=== PATIENT | female | born 1970 | race Two or more races ===

== ENCOUNTER → 2024-07-22 | Outpatient (CLI) | payer MEDICAID, SELFPAY ==
--- NOTE | 2024-07-22 14:30 | XR_ITS ---
Examination: Screening digital mammography, bilateral Computer aided detection 3-D breast Tomosynthesis, bilateral Date and time of exam: July 22, 2024 1413 hours Compared to mammograms dating to December 25, 2014 Indication: Screening Technique: Nonmagnified MLO, CC views of the breasts to been obtained, reconstructed from 3-D Tomosynthesis images. R2 computer aided detection program utilized for evaluation of suspicious masses and/or abnormal calcifications. 3-D Tomosynthesis images obtained. Findings: Scattered areas of fibroglandular density. Benign calcifications. No interval suspicious masses Impression: BI-RADS category II: Benign Findings. Recommend 1 year follow-up mammogram.
== END | disposition home or self-care (01) ==
LOC: CDIM 13:57
PROVIDERS: Referring Provider Nurse Practitioner Family; Visit Provider Nurse Practitioner Family
DX: Z12.31 Encounter for screening mammogram for malignant neoplasm of breast (principal); R92.323 Mammographic fibroglandular density, bilateral breasts; R92.1 Mammographic calcification found on diagnostic imaging of breast
CPT/HCPCS: 77063; 77067

== ENCOUNTER 2024-12-06 11:55 | Emergency (ER) | payer MEDICAID, SELFPAY ==
--- NOTE | 2024-12-06 | XR_ITS ---
Examination: MRI brain without intravenous contrast. MRA brain without contrast Date and time of exam: December 06, 2024 at 1402 hours Comparison January 09, 2015 INDICATIONS: Onset left arm and left facial weakness today Technique: Multiple axial and sagittal images of the brain obtained. Siemens high-resolution 1.5 Karmen short bore scanners utilized. Sagittal sections, T1-weighted, TR 500, TE 14, are performed. Axial sections proton-density and T2-weighted have been obtained. Inversion recovery axial images, TR 9, 260, TE 111, TI 2500. Diffusion weighted images, axial sections, TR 4800, TE 128, B value 1000 Axial sections, ADC map, TR 4800, TE 128 Findings: Enlargement of the sella turcica is not present. The optic chiasm and infundibular are not remarkable. Prepontine and interpeduncular cisterns are not enlarged. There is no localized enlargement of the medulla or jo-ann. Fourth ventricle and cerebellar tonsils appear normal in position. No subacute area of hemorrhage density is seen. Mass in the cerebellopontine angle region is not evident. Globes symmetrical. Orbital musculature including medial lateral rectus muscles do not exhibit abnormality. Diffusion-weighted images demonstrate no focus of restricted diffusion. Increased white matter signal evident, large old infarcts right middle cerebral artery distribution, left basal ganglia, left cerebellar hemisphere Mass effect upon the ventricular system is not identified. Impression: Negative for acute hemorrhage mass effect or midline shift Old infarcts as above Multiple significant stenoses bilateral posterior cerebral arteries
--- NOTE | 2024-12-06 12:02 | PC.NURSE ---
Provider at ambulance bay to assess pt. LKW Thursday12/04/24 at 1130am. Code stroke not activated due to LKW time.
--- NOTE | 2024-12-06 12:04 | PD.EDNEURO ---
Neuro Symptoms Deficit-RME/HPI General Chief Complaint: Weakness Stated Complaint: POSSIBLE STROKE Time Seen by Provider: 12/06/24 12:21 Arrival date/time: 12/06/24 11:55 Limitations: no limitations RME / HPI RME / HPI Narrative: DR. HAWKINS MAIN ED EVALUATION: 54 year old female presents to the Emergency Department [facility] with complaint of increased weakness; she has chronic weakness but has increased weakness since Thursday, 3 days ago. She states she had 9 strokes in the past. Patient is a poor historian and does not remember the last stroke. She has chronic mild generalized weakness of the left upper extremity and left lower extremity. Per family, patient can ambulate normally without a walker. She also has worsening left facial droop. No chest pain. No headache, dizziness. No abdominal pain, nausea, vomiting, or diarrhea. Related Data Home Medications ?Medication ?Instructions ?Recorded ?Confirmed amlodipine 10 mg tablet (Norvasc) 10 mg PO QDAY HBP #0 tabs 07/16/14 02/07/23 clonidine HCl 0.1 mg tablet 0.1 mg PO DAILY 03/15/20 02/07/23 atorvastatin 80 mg tablet 1 tab PO HS 04/07/22 02/07/23 dapagliflozin propanediol 5 mg 10 tab PO QDAY 04/07/22 02/07/23 tablet (Farxiga) icosapent ethyl 1 gram capsule 2 cap PO QDAY 04/07/22 02/07/23 lisinopril 20 mg tablet 1 tab PO QDAY 04/07/22 02/07/23 pantoprazole 40 mg tablet,delayed 1 tab PO QDAY 04/07/22 02/07/23 release semaglutide 1 mg/dose (4 mg/3 mL) 1 mg subcut QWEEK 04/07/22 02/07/23 subcutaneous pen injector (Ozempic) carvedilol 6.25 mg tablet 6.25 mg PO BID 01/19/23 02/07/23 insulin aspart U-100 100 unit/mL 13 unit subcut TID 01/19/23 02/07/23 (3 mL) subcutaneous pen insulin glargine U-300 conc 300 30 unit subcut HS 01/19/23 02/07/23 unit/mL (3 mL) subcutaneous pen (Toujeo Max U-300 SoloStar) Previous Rx's ?Medication ?Instructions ?Recorded clopidogrel 75 mg tablet (Plavix) 75 mg PO QDAY BLOOD THINNER #90 02/15/23 tabs ondansetron 4 mg disintegrating 4 mg PO Q4HR PRN Nausea Or 02/15/23 tablet Vomiting #30 tabs hydrocodone 5 mg-acetaminophen 325 1 tab PO Q6H PRN pain #7 tabs 04/08/23 mg tablet acetaminophen 300 mg-codeine 30 mg 1 tab PO QDAY #10 tabs 04/27/23 tablet ondansetron 4 mg disintegrating 4 mg PO Q8H #14 tabs 04/27/23 tablet ursodiol 250 mg tablet 250 mg PO TID #90 tabs 05/15/23 hydrocodone 5 mg-acetaminophen 325 1 tab PO BID PRN pain #10 tabs 05/18/23 mg tablet ciprofloxacin HCl 500 mg tablet 500 mg PO BID #14 tabs 05/25/23 (Cipro) hydrocodone 5 mg-acetaminophen 325 1 tab PO BID PRN pain #8 tabs 06/03/23 mg tablet meclizine 50 mg tablet (Antivert) 50 mg PO BID PRN vertigo #20 tabs 11/07/23 Allergies Allergy/AdvReac Type Severity Reaction Status Date / Time bee venom protein (honey bee) Allergy Anaphylaxis Verified 12/06/24 12:13 niacin AdvReac Severe BURNING Verified 05/18/23 07:53 SENSATION INSIDE SKIN Review of Systems Review of Systems Systems Reviewed: All systems reviewed, normal except as documented Past Medical History Past Medical History NEUROLOGIC: Positive Neurological Disorders and Cerebrovascular Accident CARDIAC: Positive Cardiac Disorders, Hypercholesterolemia and Hypertension GENITOURINARY: Positive Genitourinary Disorders and Kidney Stones MUSCULOSKELETAL: Positive Musculoskeletal Disorders and Gout ENDOCRINE: Positive Endocrine Disorders and Diabetes Mellitus Type 2; Negative Diabetes Mellitus Type 1 HEMATOLOGIC: Negative Sickle Cell Disease OTHER HISTORY: Positive Blood Transfusions Surgical History SURGICAL: Positive Abdominal Surgery, Hysterectomy and Section Social History SMOKING STATUS: Never smoker SECOND HAND EXPOSURE: No SUBSTANCE USE: does not use ALCOHOL: Never ED Exam General Limitations: Present no limitations General appearance: Present alert and in no apparent distress Head Head exam: Present atraumatic, normocephalic and normal inspection Eye Eye exam: Present normal appearance, PERRL and EOMI ENT ENT exam: Present normal exam, normal oropharynx and mucous membranes moist Neck Neck exam: Present normal inspection, full ROM and trachea midline Chest Chest inspection: Present normal inspection and symmetric chest wall rise Respiratory Respiratory exam: Present normal lung sounds bilaterally Cardiovascular Cardiovascular exam: Present regular rate, normal rhythm and normal heart sounds Abdominal Exam Abdominal exam: Present soft and normal bowel sounds Extremities Exam Extremities exam: Present normal inspection and full ROM Back Exam Back exam: Present normal inspection and full ROM Neurological Exam Neurological exam: Present alert, oriented X3 and other (mild left facial droop; finger to nose test intact; heel to smith intact) Expanded Neurological Exam Patient oriented to: Present person, place and time Speech: Present fluid speech Motor strength - LUE: 4/5 Motor strength - RUE: 5 Motor strength - LLE: 4/ Motor strength - RLE: 12/19 Psychiatric Psychiatric exam: Present normal affect and normal mood Skin Skin exam: Present warm, dry, intact and normal color Course Quality Measures none Orders Category Date Time Status Bedside Blood Glucose NOW Care 12/06/24 12:37 Active Marker Assembler NOW Care 12/06/24 12:37 Active Continuous Pulse Oximetry NOW Care 12/06/24 12:37 Completed EKG (ED ONLY) *Do not use* NOW Care 12/06/24 12:37 Completed Insert IV NOW Care 12/06/24 12:37 Active MRI Screening NOW Care 12/06/24 12:42 Active NIH Stroke Scale now Care 12/06/24 12:37 Active NPO NOW Care 12/06/24 12:37 Active Neuro Check Q15MIN Care 12/06/24 12:37 Active Nurse Swallow Screen x1 Care 12/06/24 12:37 Active Consult to Neurology / Tele-Neurology Routine Cons 12/06/24 12:37 Active EKG (ED Only) Stat Exams 12/06/24 12:37 Draft MR head/brain wo con Stat Exams 12/06/24 Completed CBC Stat Lab 12/06/24 13:04 Completed Comprehensive Metabolic Panel Stat Lab 12/06/24 13:04 Completed Magnesium Stat Lab 12/06/24 13:04 Completed Partial Thromboplastin Time Stat Lab 12/06/24 13:04 Completed Prothrombin Time with INR Stat Lab 12/06/24 13:04 Completed Troponin I Stat Lab 12/06/24 13:04 Completed Urinalysis Stat Lab 12/06/24 12:37 Ordered LORazepam [Ativan Inj] Med 12/06/24 13:07 Discontinued 0.5 mg IVP X1 ONE Vital Signs Vital signs: Vital Signs Temperature 98.8 F 12/06/24 12:05 Pulse Rate 76 12/06/24 12:05 Respiratory Rate 20 12/06/24 12:05 Blood Pressure 165/112 H 12/06/24 12:05 Pulse Oximetry (%) 97 12/06/24 12:05 Oxygen Delivery Method Room Air 12/06/24 12:05 Neuro Symptoms / Deficit MDM Narrative MDM Narrative:: IJasmyn am scribing for and in the presence of Dr. Hawkins. Patient data External records reviewed:: EMS form Clinical information provided by:: patient and EMS Social determinants that could affect healthcare access:: none Patient has the following chronic illnesses:: 9 strokes in the past. How is presenting disease/condition affected by chronic disease/condition?: exacerbated by Evaluation data The following diagnostics were reviewed and interpreted by me:: lab results, radiology exam(s) and EKG tracing(s) Lab and/or radiology exams considered but not ordered:: none Interpretation Summary: EKG#1: EKG at 1209 hours. Interpreted by me: sinus rhythm, rate 79, low voltage, nonspecific ST-T wave changes, RI interval 177 ms, QRS duration 79 ms, QT/QTc 378/416, P-R-T axis 40, 2, and 68 RADIOLOGY Procedure(s): MR head/brain wo con Accession Number(s): [id number] cc: Caleb Hawkins MD; Ab Polk MD~ Examination: MRI brain without intravenous contrast. MRA brain without contrast Date and time of exam: December 06, 2024 at 1402 hours Comparison January 09, 2015 INDICATIONS: Onset left arm and left facial weakness today Technique: Multiple axial and sagittal images of the brain obtained. Siemens high-resolution 1.5 Karmen short bore scanners utilized. Sagittal sections, T1-weighted, TR 500, TE 14, are performed. Axial sections proton-density and T2-weighted have been obtained. Inversion recovery axial images, TR 9, 260, TE 111, TI 2500. Diffusion weighted images, axial sections, TR 4800, TE 128, B value 1000 Axial sections, ADC map, TR 4800, TE 128 Findings: Enlargement of the sella turcica is not present. The optic chiasm and infundibular are not remarkable. Prepontine and interpeduncular cisterns are not enlarged. There is no localized enlargement of the medulla or jo-ann. Fourth ventricle and cerebellar tonsils appear normal in position. No subacute area of hemorrhage density is seen. Mass in the cerebellopontine angle region is not evident. Globes symmetrical. Orbital musculature including medial lateral rectus muscles do not exhibit abnormality. Diffusion-weighted images demonstrate no focus of restricted diffusion. Increased white matter signal evident, large old infarcts right middle cerebral artery distribution, left basal ganglia, left cerebellar hemisphere Mass effect upon the ventricular system is not identified. Impression: Negative for acute hemorrhage mass effect or midline shift Old infarcts as above Multiple significant stenoses bilateral posterior cerebral arteries Dictated By: Ab Polk MD Medications / Prescriptions Medications or Prescriptions considered but not ordered:: none Medication administrations:: Medication Administration History Discontinued Medications Lorazepam (Lorazepam 2 Mg/Ml Vial) 0.5 mg IVP X1 ONE Stop: 12/06/24 13:08 Last Admin: 12/06/24 13:12 Dose: 0.5 mg Documented By: TM see above Consultations Consultation(s) initiated? (list below): No Diagnosis Neuro Differential Diagnosis: subarachnoid hemorrhage, cerebrovascular accident and transient cerebral ischemia Most likely diagnosis given after review of the tests above:: Weakness Paresthesias History of CVA Admission Indicated Admission indicated?: not indicated Admission Request Was there a request for admission?: No Disposition Plan Disposition Plan: Discharge Discharge Attestation Discharge Attestation: The patient and all family members were given an opportunity to ask questions and understood the discharge instructions. Discharge instructions specifically effects, indications for sooner follow up or return to the emergency department, and the expected course of current diagnosis. Patient condition: Stable Discharge Plan Plan Patient Disposition: HOME (Self Care) Patient condition on transfer: Stable Prescriptions/Referrals Prescriptions/Med Rec: No Action ursodiol 250 mg tablet 250 mg PO TID Qty: 90 0RF amlodipine [Norvasc] 10 MG tablet 10 mg PO QDAY Qty: 0 clonidine HCl 0.1 MG tablet 0.1 mg PO DAILY Rx Instructions: ONLY IF SBP IS GREATER THAN 160 atorvastatin 80 mg tablet 1 tab PO HS Patient Comments: TAKE 1 TABLET BY MOUTH EVERY DAY lisinopril 20 mg tablet 1 tab PO QDAY Patient Comments: TAKE 1 TABLET BY MOUTH EVERY DAY pantoprazole 40 mg tablet,delayed release (DR/EC) 1 tab PO QDAY Patient Comments: TAKE 1 TABLET BY MOUTH EVERY DAY IN THE MORNING BEFORE MEALS icosapent ethyl 1 gram capsule 2 cap PO QDAY Patient Comments: TAKE 2 CAPSULES BY MOUTH EVERY DAY Farxiga 5 mg tablet 10 tab PO QDAY Patient Comments: TAKE 1 TABLET BY MOUTH EVERY DAY Ozempic 1 mg/dose (4 mg/3 mL) pen injector 1 mg SUBCUT QWEEK Patient Comments: INJECT 1 MG SUBCUTANEOUSLY ONCE A WEEK carvedilol 6.25 mg tablet 6.25 mg PO BID Patient Comments: TAKE 1 TABLET BY MOUTH TWICE A DAY insulin aspart U-100 100 unit/mL (3 mL) insulin pen 13 unit SUBCUT TID Patient Comments: INJECT 13 UNITS 3 TIMES A DAY WITH MEAL Toujeo Max U-300 SoloStar 300 unit/mL (3 mL) insulin pen 30 unit SUBCUT HS Patient Comments: INJECT 30 UNITS SUBCUTANEOUS EVERY NIGHT hydrocodone-acetaminophen 5-325 mg tablet 1 tab PO Q6H MDD 3 PRN (Reason: pain) Qty: 7 0RF hydrocodone-acetaminophen 5-325 mg tablet 1 tab PO BID MDD 10 PRN (Reason: pain) Qty: 10 0RF ciprofloxacin HCl [Cipro] 500 mg tablet 500 mg PO BID Qty: 14 0RF hydrocodone-acetaminophen 5-325 mg tablet 1 tab PO BID MDD 10 PRN (Reason: pain) Qty: 8 0RF meclizine [Antivert] 50 mg tablet 50 mg PO BID PRN (Reason: vertigo) Qty: 20 0RF ondansetron 4 mg Tablet,Disintegrating 4 mg PO Q4HR PRN (Reason: Nausea Or Vomiting) Qty: 30 0RF clopidogrel [Plavix] 75 MG tablet 75 mg PO QDAY Qty: 90 0RF ondansetron 4 mg tablet,disintegrating 4 mg PO Q8H Qty: 14 0RF acetaminophen-codeine 300-30 mg tablet 1 tab PO QDAY Qty: 10 0RF Problem List Clinical Impression: Weakness, Complaint of paresthesia, Hx of completed stroke Patient/Caregiver Discharge Instructions Education Materials: Stroke Prevent Another Caregiver, ED Weakness (Uncertain Cause), ED Paraesthesias Additional Instructions: Please follow-up with your primary care physician within a week. Return to the Emergency Department as needed. Print Language: [place] Stand Alone Forms: Fiona Award Info., Patient Portal Info Letter
[2024-12-06 12:05] VITALS: BP 165/112; PULSE 75; PULSE 76; RESP 18; RESP 20; TEMP 37.1; O2SAT 97
[2024-12-06 12:15] VITALS: BP 165/112; PULSE 72; RESP 18; TEMP 36.4; O2SAT 95
--- NOTE | 2024-12-06 12:27 | PC.NURSE ---
PT BIBA FROM HOME FOR INCREASED WEAKNESS TO LEFT SIDE THAT STARTED ON Thursday12/04/24. LKW WAS 1130 ON 12/04/24. PER EMS PT HAS HX OF 9 STROKES, W/RESIDUAL WEAKNESS TO LEFT SIDE. PT DENIES ANY PAIN OR DISCOMFORT, REPORTS SHE HAD THE FLU LAST WEEK AND WAS ON TAMIFLU. PT CONNECTED TO TELE, EKG DONE, WILL CONT W/POC.
--- NOTE | 2024-12-06 12:37 | EKG_ITS ---
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
[2024-12-06 13:01] VITALS: BP 133/79; PULSE 74; RESP 16; TEMP 36.9; O2SAT 98
[2024-12-06] MEDS: LORazepam 2 MG/ML VIAL 0.5 MG IVP (13:12)
--- NOTE | 2024-12-06 13:12 | PC.NURSE ---
PT TO MRI
[2024-12-06 13:26] LABS: Basophils # (Auto) 0.1 Thou/mm3 (0.0-0.2); Basophils % (Auto) 1 % (0-2.5); Eosinophils # (Auto) 0.7 Thou/mm3 (0.0-0.5); Eosinophils % (Auto) 7 % (0-10); Hematocrit 46.1 % (36.0-46.0); Hemoglobin 15.4 g/dL (12.0-16.0); Immature Granulocytes % (Auto) 0 % (0-0); Immature Granulocytes Auto 0.04 Thou/mm3 (0.00-0.00); Lymphocytes # (Auto) 2.5 Thou/mm3 (1.0-4.8); Lymphocytes % (Auto) 25 % (10-50); Mean Corpuscular HGB Conc 33.4 g/dl (31.0-37.0); Mean Corpuscular Hemoglobin 27.5 pg (25.0-35.0); Mean Corpuscular Volume 83 fL (80-100); Monocytes # (Auto) 0.6 Thou/mm3 (0.0-0.8); Monocytes % (Auto) 6 % (0-12); Neutrophils # (Auto) 6.1 Thou/mm3 (1.8-7.7); Neutrophils % (Auto) 61 % (37-80); Nucleated Red Blood Cell % 0 /100 WBC (0); Platelet Count 298 Thou/mm3 (140-440); RDW Standard Deviation 42.5 fL (36.4-46.3); Red Blood Count 5.59 Miln/mm3 (4.00-5.20); White Blood Count 10.1 Thou/mm3 (3.6-11.0)
[2024-12-06 13:37] LABS: Partial Thromboplastin Time 28.4 Seconds (22.0-36.0); Prothrombin Time 11.3 Seconds (9.0-12.2)
[2024-12-06 13:44] LABS: Alanine Aminotransferase 15 U/L (10-49); Albumin, Serum 4.2 gm/dL (3.5-5.0); Albumin/Globulin Ratio 1.3 (1.2-2.2); Alkaline Phosphatase 116 U/L (46-116); Anion Gap 9 (7-16); Aspartate Amino Transferase 20 U/L (0-34); BUN/Creatinine Ratio 11 Ratio (12-20); Bilirubin,Total 0.6 mg/dL (0.3-1.2); Blood Urea Nitrogen 16 mg/dL (9-23); Calcium 9.1 mg/dL (8.3-10.6); Calcium (Corrected) 9.1 mg/dL (8.5-10.1); Carbon Dioxide 21.4 mMol/L (20.0-31.0); Chloride 110 mMol/L (98-107); Creatinine (Component) 1.4 mg/dL (0.6-1.3); Globulin 3.2 gm/dL (2.3-3.5); Glucose 277 mg/dL (74-106); Osmolality,Calculated 290 (275-295); Sodium 140 mMol/L (136-145); Total Protein 7.4 gm/dL (5.7-8.2); Troponin I < 0.020 ng/mL (0.0-0.045); eGFR 44 See Note
== END 2024-12-06 15:23 | disposition home or self-care (01) ==
PROVIDERS: Emergency Provider Family Medicine
DX: I66.23 Occlusion and stenosis of bilateral posterior cerebral arteries (principal); R94.31 Abnormal electrocardiogram [ECG] [EKG]; I69.392 Facial weakness following cerebral infarction; I69.354 Hemiplegia and hemiparesis following cerebral infarction affecting left non-dominant side; I69.334 Monoplegia of upper limb following cerebral infarction affecting left non-dominant side; E78.00 Pure hypercholesterolemia, unspecified; I10 Essential (primary) hypertension; Z79.01 Long term (current) use of anticoagulants
CPT/HCPCS: 36415; 70551; 80053; 81001; 83735; 84484; 85025; 85610; 85730; 93005; 96374; 99284; J2060

== ENCOUNTER 2025-03-26 09:36 | Emergency (ER) | payer MEDICAID, SELFPAY ==
[2025-03-26 09:44] VITALS: BP 150/92; PULSE 80; RESP 18; TEMP 36.8; O2SAT 96; BMI 26.9
--- NOTE | 2025-03-26 10:22 | PD.EDNECK ---
ED Neck Injury Pain RME/HPI General Chief Complaint: Neck Pain/Injury Stated Complaint: RIGHT SIDED NECK PAIN RADIATING DOWN RIGHT ARM Time Seen by Provider: 03/26/25 10:09 Arrival date/time: 03/26/25 09:36 54-year-old female with complaints of acute on chronic neck pain presents to the emergency department today for complaints of neck pain radiating down the right arm patient reports no recent injury no headache or weakness Limitations: no limitations Related Data Home Medications ?Medication ?Instructions ?Recorded ?Confirmed amlodipine 10 mg tablet (Norvasc) 10 mg PO QDAY HBP #0 tabs 07/16/14 02/07/23 clonidine HCl 0.1 mg tablet 0.1 mg PO DAILY 03/15/20 02/07/23 atorvastatin 80 mg tablet 1 tab PO HS 04/07/22 02/07/23 dapagliflozin propanediol 5 mg 10 tab PO QDAY 04/07/22 02/07/23 tablet (Farxiga) icosapent ethyl 1 gram capsule 2 cap PO QDAY 04/07/22 02/07/23 lisinopril 20 mg tablet 1 tab PO QDAY 04/07/22 02/07/23 pantoprazole 40 mg tablet,delayed 1 tab PO QDAY 04/07/22 02/07/23 release semaglutide 1 mg/dose (4 mg/3 mL) 1 mg subcut QWEEK 04/07/22 02/07/23 subcutaneous pen injector (Ozempic) carvedilol 6.25 mg tablet 6.25 mg PO BID 01/19/23 02/07/23 insulin aspart U-100 100 unit/mL 13 unit subcut TID 01/19/23 02/07/23 (3 mL) subcutaneous pen insulin glargine U-300 conc 300 30 unit subcut HS 01/19/23 02/07/23 unit/mL (3 mL) subcutaneous pen (Toujeo Max U-300 SoloStar) Previous Rx's ?Medication ?Instructions ?Recorded clopidogrel 75 mg tablet (Plavix) 75 mg PO QDAY BLOOD THINNER #90 02/15/23 tabs ondansetron 4 mg disintegrating 4 mg PO Q4HR PRN Nausea Or 02/15/23 tablet Vomiting #30 tabs hydrocodone 5 mg-acetaminophen 325 1 tab PO Q6H PRN pain #7 tabs 04/08/23 mg tablet acetaminophen 300 mg-codeine 30 mg 1 tab PO QDAY #10 tabs 04/27/23 tablet ondansetron 4 mg disintegrating 4 mg PO Q8H #14 tabs 04/27/23 tablet ursodiol 250 mg tablet 250 mg PO TID #90 tabs 05/15/23 hydrocodone 5 mg-acetaminophen 325 1 tab PO BID PRN pain #10 tabs 05/18/23 mg tablet ciprofloxacin HCl 500 mg tablet 500 mg PO BID #14 tabs 05/25/23 (Cipro) hydrocodone 5 mg-acetaminophen 325 1 tab PO BID PRN pain #8 tabs 06/03/23 mg tablet meclizine 50 mg tablet (Antivert) 50 mg PO BID PRN vertigo #20 tabs 11/07/23 cyclobenzaprine 10 mg tablet 10 mg PO TID PRN muscle spasm 10 03/26/25 days #30 tab-caps hydrocodone 5 mg-acetaminophen 325 1 tab PO BID PRN pain #8 tabs 03/26/25 mg tablet Allergies Allergy/AdvReac Type Severity Reaction Status Date / Time bee venom protein (honey bee) Allergy Anaphylaxis Verified 03/26/25 09:40 niacin AdvReac Severe BURNING Verified 03/26/25 09:40 SENSATION INSIDE SKIN Review of Systems Review of Systems Systems Reviewed: All systems reviewed, normal except as documented Constitutional Constitutional: Reports system reviewed and no additional complaints, except as documented, Denies fever(s) and Denies headache(s) Eyes Eyes: Reports system reviewed and no additional complaints, except as documented and Denies blurry vision ENT Ears, Nose, Mouth, and Throat: Reports system reviewed and no additional complaints, except as documented, Denies headache(s), Denies nasal congestion, Denies nasal discharge and Reports neck pain Cardiovascular Cardiovascular: Reports system reviewed and no additional complaints, except as documented, Denies chest pain and Denies dyspnea Respiratory Respiratory: Reports system reviewed and no additional complaints, except as documented, Denies chest congestion, Denies cough and Denies dyspnea Gastrointestinal Gastrointestinal: Reports system reviewed and no additional complaints, except as documented and Denies abdominal pain Musculoskeletal Musculoskeletal: Reports system reviewed and no additional complaints, except as documented, Denies deformity, Reports neck pain, Denies numbness, Reports stiffness and Denies tingling Integumentary/Breasts Skin/Breast: Reports system reviewed and no additional complaints, except as documented and Denies rash Neurologic Neurologic: Reports system reviewed and no additional complaints, except as documented, Reports as per HPI, Denies headache(s), Denies numbness and Denies tingling Past Medical History Past Medical History NEUROLOGIC: Positive Neurological Disorders and Cerebrovascular Accident CARDIAC: Positive Cardiac Disorders, Hypercholesterolemia and Hypertension; Negative Congestive Heart Failure RESPIRATORY: Negative Chronic Obstructive Pulmonary Disease (COPD) or Asthma GASTROINTESTINAL: Negative Gastrointestinal Disorders GENITOURINARY: Positive Genitourinary Disorders and Kidney Stones; Negative Renal Disease MUSCULOSKELETAL: Positive Musculoskeletal Disorders and Gout ENDOCRINE: Positive Endocrine Disorders and Diabetes Mellitus Type 2; Negative Diabetes Mellitus Type 1 HEMATOLOGIC: Negative Sickle Cell Disease OTHER HISTORY: Positive Blood Transfusions Surgical History SURGICAL: Positive Abdominal Surgery, Hysterectomy and Section Social History SMOKING STATUS: Former smoker SECOND HAND EXPOSURE: No SUBSTANCE USE: does not use ED Exam General Limitations: Present no limitations General appearance: Present alert and in no apparent distress Head Head exam: Present atraumatic Eye Eye exam: Present normal appearance, PERRL and EOMI ENT ENT exam: Present normal exam, normal oropharynx and mucous membranes moist Neck Neck exam: Present normal inspection, full ROM, trachea midline and tenderness; Absent meningismus, lymphadenopathy or thyromegaly Chest Chest inspection: Present normal inspection and symmetric chest wall rise Respiratory Respiratory exam: Present normal lung sounds bilaterally Cardiovascular Cardiovascular exam: Present regular rate, normal rhythm and normal heart sounds Abdominal Exam Abdominal exam: Present soft and normal bowel sounds Extremities Exam Extremities exam: Present normal inspection and full ROM Back Exam Back exam: Present normal inspection and full ROM Neurological Exam Neurological exam: Present alert, oriented X3 and CN II-XII intact Psychiatric Psychiatric exam: Present normal affect and normal mood Skin Skin exam: Present warm, dry, intact and normal color Course Quality Measures none Orders Category Date Time Status HYDROcodone*/APAP 5/325 [[place] 5/325] Med 03/26/25 10:14 Discontinued 1 tab PO X1 ONE Vital Signs Vital signs: Vital Signs Temperature 98.3 F 03/26/25 09:44 Pulse Rate 80 03/26/25 09:44 Respiratory Rate 18 03/26/25 09:44 Blood Pressure 150/92 H 03/26/25 09:44 Pulse Oximetry (%) 96 03/26/25 09:44 Oxygen Delivery Method Room Air 03/26/25 09:44 O2 saturation 96% on room air within normal limits Neck Pain MDM Narrative MDM Narrative:: 54-year-old female with complaints of acute on chronic neck pain presents to the emergency department today for complaints of neck pain radiating down the right arm patient reports no recent injury no headache or weakness On exam patient well-appearing patient does not appear ill or toxic in no acute distress Symptoms consistent with muscle spasm, pinched nerve Patient be treated with course of [place] and muscle relaxers Patient discharged home in no distress to follow-up with primary care doctor in the next 24 to 48 hours and for any worsening symptoms to return to the ER immediately Patient data External records reviewed:: [facility] [place] previous records Clinical information provided by:: patient Social determinants that could affect healthcare access:: none Patient has the following chronic illnesses:: See history How is presenting disease/condition affected by chronic disease/condition?: caused by Evaluation data The following diagnostics were reviewed and interpreted by me:: other (specify) Lab and/or radiology exams considered but not ordered:: Considered not indicated Interpretation Summary: N/A Medications / Prescriptions Medications or Prescriptions considered but not ordered:: Given Medication administrations:: Medication Administration History Discontinued Medications Hydrocodone Bitart/Acetaminophen (Hydrocodone/Apap 5/325 Tablet) 1 tab PO X1 ONE Stop: 03/26/25 10:15 Last Admin: 03/26/25 10:32 Dose: 1 tab Documented By: Given Consultations Consultation(s) initiated? (list below): No Diagnosis Neck Differential Diagnosis: disc disorder of cervical region, closed subluxation of cervical spine, torticollis and strain of neck muscle Most likely diagnosis given after review of the tests above:: Neck pain Admission Indicated Admission indicated?: not indicated Admission Request Was there a request for admission?: No Disposition Plan Disposition Plan: Discharge Discharge Attestation Discharge Attestation: The patient and all family members were given an opportunity to ask questions and understood the discharge instructions. Discharge instructions specifically effects, indications for sooner follow up or return to the emergency department, and the expected course of current diagnosis. Patient condition: Stable Discharge Plan Plan Patient Disposition: HOME (Self Care) Discharge Disposition comment: Stable Prescriptions/Referrals Prescriptions/Med Rec: New cyclobenzaprine 10 mg tablet 10 mg PO TID PRN (Reason: muscle spasm) 10 Days Qty: 30 0RF hydrocodone-acetaminophen 5-325 mg tablet 1 tab PO BID MDD 10 PRN (Reason: pain) Qty: 8 0RF No Action ursodiol 250 mg tablet 250 mg PO TID Qty: 90 0RF amlodipine [Norvasc] 10 MG tablet 10 mg PO QDAY Qty: 0 clonidine HCl 0.1 MG tablet 0.1 mg PO DAILY Rx Instructions: ONLY IF SBP IS GREATER THAN 160 atorvastatin 80 mg tablet 1 tab PO HS Patient Comments: TAKE 1 TABLET BY MOUTH EVERY DAY lisinopril 20 mg tablet 1 tab PO QDAY Patient Comments: TAKE 1 TABLET BY MOUTH EVERY DAY pantoprazole 40 mg tablet,delayed release (DR/EC) 1 tab PO QDAY Patient Comments: TAKE 1 TABLET BY MOUTH EVERY DAY IN THE MORNING BEFORE MEALS icosapent ethyl 1 gram capsule 2 cap PO QDAY Patient Comments: TAKE 2 CAPSULES BY MOUTH EVERY DAY Farxiga 5 mg tablet 10 tab PO QDAY Patient Comments: TAKE 1 TABLET BY MOUTH EVERY DAY Ozempic 1 mg/dose (4 mg/3 mL) pen injector 1 mg SUBCUT QWEEK Patient Comments: INJECT 1 MG SUBCUTANEOUSLY ONCE A WEEK carvedilol 6.25 mg tablet 6.25 mg PO BID Patient Comments: TAKE 1 TABLET BY MOUTH TWICE A DAY insulin aspart U-100 100 unit/mL (3 mL) insulin pen 13 unit SUBCUT TID Patient Comments: INJECT 13 UNITS 3 TIMES A DAY WITH MEAL Toujeo Max U-300 SoloStar 300 unit/mL (3 mL) insulin pen 30 unit SUBCUT HS Patient Comments: INJECT 30 UNITS SUBCUTANEOUS EVERY NIGHT hydrocodone-acetaminophen 5-325 mg tablet 1 tab PO Q6H MDD 3 PRN (Reason: pain) Qty: 7 0RF hydrocodone-acetaminophen 5-325 mg tablet 1 tab PO BID MDD 10 PRN (Reason: pain) Qty: 10 0RF ciprofloxacin HCl [Cipro] 500 mg tablet 500 mg PO BID Qty: 14 0RF hydrocodone-acetaminophen 5-325 mg tablet 1 tab PO BID MDD 10 PRN (Reason: pain) Qty: 8 0RF meclizine [Antivert] 50 mg tablet 50 mg PO BID PRN (Reason: vertigo) Qty: 20 0RF ondansetron 4 mg Tablet,Disintegrating 4 mg PO Q4HR PRN (Reason: Nausea Or Vomiting) Qty: 30 0RF clopidogrel [Plavix] 75 MG tablet 75 mg PO QDAY Qty: 90 0RF ondansetron 4 mg tablet,disintegrating 4 mg PO Q8H Qty: 14 0RF acetaminophen-codeine 300-30 mg tablet 1 tab PO QDAY Qty: 10 0RF Problem List Clinical Impression: Neck pain Patient/Caregiver Discharge Instructions Education Materials: How Your Back Works Additional Instructions: Please follow up with your primary care doctor in the next 24-48hrs for any worsening symptoms return here immediately Print Language: Afghan Stand Alone Forms: Fiona Award Info., Patient Portal Info Letter PA/[employer]EV[employer] WORKER Supervising Physician PA/[employer] WORKER Supervising Physician: Dr. Ben MENESES Attestation MD Attestation The patient was seen by the midlevel practitioner. I, the co-signing physician, was present during the entire ER visit. While I did not physically examine the patient, I was available for consultation as needed. I agree with the plan and documentation.
[2025-03-26] MEDS: HYDROcodone/APAP 5/325 TABLET 1 TAB PO (10:32)
== END 2025-03-26 10:54 | disposition home or self-care (01) ==
LOC: SERX 10:49
PROVIDERS: Emergency Provider Nurse Practitioner Primary Care; PCP Student in an Organized Health Care Education/Training Program
DX: M54.2 Cervicalgia (principal); I10 Essential (primary) hypertension; E11.9 Type 2 diabetes mellitus without complications; E78.00 Pure hypercholesterolemia, unspecified; Z87.891 Personal history of nicotine dependence; Z79.899 Other long term (current) drug therapy; Z79.4 Long term (current) use of insulin; Z79.85 Long-term (current) use of injectable non-insulin antidiabetic drugs
CPT/HCPCS: 99283; A9270